=== PATIENT | female | born 1970 | race Caucasian/White ===

== ENCOUNTER → 2018-08-17 16:18 | Outpatient (CLI) | payer BC, SELFPAY ==
[2018-08-17 17:35] LABS: Anion Gap 7 (5-15); BUN 16 mg/dL (7-18); BUN/Creat Ratio 13.3 RATIO (10-20); Calcium,Total 9.2 mg/dL (8.5-10.1); Chloride 104 mmol/L (98-107); EST Glomerular Filtration Rate 51 mL/min (>60); Est Glom Filt Rate - Afr Amer 62 mL/min (>60); Glucose 76 mg/dL (74-106); Magnesium 2.2 mg/dL (1.6-2.6); Potassium 4.1 mmol/L (3.5-5.1); Sodium Level 140 mmol/L (136-145); Thyroid Stim Hormone (TSH) 1.38 uIU/mL (0.358-3.74)
== END ==
PROVIDERS: Referring Provider Internal Medicine Cardiovascular Disease; Visit Provider Internal Medicine Cardiovascular Disease
DX: I48.91 Unspecified atrial fibrillation (principal)
CPT/HCPCS: 36415; 80048; 83735; 84443

== ENCOUNTER → 2018-11-27 15:02 | Outpatient (CLI) | payer BC, SELFPAY ==
[2018-08-17 15:27] VITALS: BMI 24.6
--- NOTE | 2018-11-27 15:04 | ECHOD_ITS ---
Reason For Study: Afib/Flutter Procedure This was a 2D Doppler, Color Flow transthoracic echocardiogram. Exam performed in department. Left Ventricle Normal LV size. Left ventricular systolic function is normal. The estimated ejection fraction is 55 %. No evidence for diastolic dysfunction. No regional wall motion abnormalities noted. Right Ventricle Normal RV size. ICD or pacer leads identified within the right ventricle. Normal systolic function. Atria Normal left atrium. Normal right atrium. Mitral Valve Normal mitral valve. Tricuspid Valve Normal tricuspid valve. Mild (1+) tricuspid valve insufficiency. Pulmonary artery systolic pressure is 30 mmHg. Aortic Valve Normal aortic valve. Trisinus/trileaflet aortic valve. Pulmonic Valve Normal pulmonic valve. Great Vessels Normal aortic root. The pulmonary artery is normal size. Normal inferior vena cava. Pericardium/Pleural No pericardial effusion. MMode/2D Measurements & Calculations LVIDd: 3.6 cm IVSd: 1.0 cm Ao root diam: 2.7 cm LVIDs: 2.6 cm LVPWd: 0.73 cm LA dimension: 3.3 cm RVDd: 2.9 cm FS: 27.9 % LAV(MOD-bp): 39.2 ml LA A4 area: 15.2 cm2 RA A4 area: 12.9 cm2 LAV(MOD-bp) Indexed: 21.0 ml/m2 LAV(MOD-sp2): 38.6 ml LAV(MOD-sp4): 39.4 ml Time Measurements MV dec time: 0.19 sec Doppler Measurements & Calculations MV E max lizandro: 91.0 cm/sec Lat Peak E' Lizandro: 12.5 cm/sec Med Peak E' Lizandro: 7.1 cm/sec MV A max lizandro: 65.7 cm/sec E/E' lat: 7.3 E/E' med: 12.8 MV E/A: 1.4 MV V2 max: 87.4 cm/sec MV P1/2t max lizandro: 89.9 cm/sec Ao V2 max: 106.8 cm/sec MV max P.1 mmHg MV P1/2t: 42.0 msec Ao max P.6 mmHg MV V2 mean: 52.1 cm/sec MV dec slope: 627.3 cm/sec2 MV mean P.3 mmHg MVA(P1/2t): 5.2 cm2 MV V2 VTI: 21.7 cm LV V1 max: 92.1 cm/sec PA V2 max: 118.5 cm/sec TR max lizandro: 249.6 cm/sec LV V1 max P.4 mmHg TR max P.9 mmHg Interpretation Summary Normal LV size. Left ventricular systolic function is normal. The estimated ejection fraction is 55 %. No evidence for diastolic dysfunction. Mild (1+) tricuspid valve insufficiency. Ordering Physician: Miguel Knutson Referring Physician: Miguel Knutson Performed By: Genaro George RCS
== END ==
PROVIDERS: Referring Provider Internal Medicine Cardiovascular Disease; Visit Provider Internal Medicine Cardiovascular Disease
DX: I48.91 Unspecified atrial fibrillation (principal)
CPT/HCPCS: 93306